=== PATIENT | male | born 1985 | race Caucasian/White ===

== ENCOUNTER 2018-11-11 15:25 | Emergency (ER) | payer OTHER ==
[2018-11-11 15:40] VITALS: BP 109/53; PULSE 86; RESP 18; TEMP 99
--- NOTE | 2018-11-11 16:00 | ED ---
Lower Extremity Injury HPI - General Chief Complaint: Extremity Injury, Lower Stated Complaint: Ankle injury Time Seen by Provider: 11/11/18 15:47 Source: patient Mode of arrival: ambulatory Limitations: no limitations - History of Present Illness Initial Comments: Patient is a 33-year-old male presenting to the emergency Department with complaints of left ankle pain times one day. Patient states he was walking on sidewalk last night and went to turn it and rolled his left ankle. Patient states he woke up today with increasing pain and swelling. Patient denies any previous injuries to left ankle. Patient is able to put some pressure on the ankle. Patient denies any numbness or tingling. Patient states denies any other complaints at this time. - Related Data Home Medications Medication Instructions Recorded Confirmed Ibuprofen [Motrin] 600 mg PO Q6HR PRN 11/11/15 11/12/15 Mupirocin 2% Oint [Bactroban 2% 1 applic TOPICAL TID 11/11/15 11/12/15 Oint] Sulfamethox-Tmp 800-160Mg [Bactrim 1 tab PO Q12HR 11/11/15 11/12/15 DS 800-160 mg] Previous Rx's Medication Instructions Recorded Metoclopramide HCl [Reglan] 10 mg PO Q6HR PRN #15 tablet 11/11/15 Sulfamethox-Tmp 800-160Mg [Bactrim 1 each PO Q12HR #14 tab 11/11/15 DS 800-160 mg] Clindamycin HCl [Cleocin] 300 mg PO Q6H #40 cap 11/12/15 predniSONE 50 mg PO DAILY #3 tab 11/12/15 Allergies Allergy/AdvReac Type Severity Reaction Status Date / Time sulfamethoxazole Allergy Rash/Hives Verified 11/11/18 15:37 [From Bactrim] trimethoprim [From Bactrim] Allergy Rash/Hives Verified 11/11/18 15:37 Review of Systems ROS Statement: Those systems with pertinent positive or pertinent negative responses have been documented in the HPI. ROS Other: All systems not noted in ROS Statement are negative. Past Medical History Past Medical History: No Reported History History of Any Multi-Drug Resistant Organisms: MRSA Date of last positivie culture/infection: 10/2015 - MRSA MDRO Source:: left thigh Past Surgical History: Appendectomy Past Psychological History: No Psychological Hx Reported Smoking Status: Former smoker Past Alcohol Use History: Occasional Past Drug Use History: Marijuana General Exam - General Exam Comments Initial Comments: GENERAL: Well-appearing, well-nourished and in no acute distress. HEAD: Atraumatic, normocephalic. EYES: Pupils equal round and reactive to light, extraocular movements intact, sclera anicteric, conjunctiva are normal. ENT: TMs normal, nares patent, oropharynx clear without exudates. Moist mucous membranes. NECK: Normal range of motion, supple without lymphadenopathy or JVD. LUNGS: Breath sounds clear to auscultation bilaterally and equal. No wheezes rales or rhonchi. HEART: Regular rate and rhythm without murmurs, rubs or gallops. ABDOMEN: Soft, nontender, normoactive bowel sounds. No guarding, no rebound. No masses appreciated. : Deferred EXTREMITIES: Patient has pain to palpation of the left lateral ankle along with some moderate edema. There is no bruising or erythema. Patient has slightly decreased range of motion of the left ankle. No pain in the left foot or toes. No pain in the lower leg. Neurovascular intact. NEUROLOGICAL: Cranial nerves II through XII grossly intact. Normal speech, normal gait. PSYCH: Normal mood, normal affect. SKIN: Warm, Dry, normal turgor, no rashes or lesions noted. Limitations: no limitations Course Vital Signs 11/11/18 15:37 Temperature 99.0 F Pulse Rate 86 Respiratory 18 Rate Blood Pressure 109/53 O2 Sat by Pulse 97 Oximetry Medical Decision Making - Medical Decision Making Patient is a 33-year-old male with complaints of left ankle pain times one day. Patient states he rolled his left ankle yesterday on the side of the sidewalk. On exam patient has mild to moderate swelling of the lateral left ankle and pain with palpation. X-ray of the left ankle reveals no acute fractures or dislocations. Patient was counseled on ankle sprains and be discharged home. Patient is in agreement with this plan. Return parameters were discussed with the patient and he verbalized understanding. Disposition Clinical Impression: Left ankle sprain Disposition: HOME SELF-CARE Condition: Stable Instructions (If sedation given, give patient instructions): Ankle Sprain (ED) Additional Instructions: Please return to the Emergency Department if symptoms worsen or any other concerns. Is patient prescribed a controlled substance at d/c from ED?: No Referrals: None,Stated [Primary Care Provider] - 1-2 days
--- NOTE | 2018-11-11 16:11 | XR ---
EXAMINATION TYPE: XR ankle complete LT DATE OF EXAM: 11/11/2018 COMPARISON: NONE HISTORY: Ankle pain TECHNIQUE: 3 views FINDINGS: Ankle mortise is anatomic. I see no fracture nor dislocation. Joint spaces are fairly margarito l. There is ankle joint effusion. IMPRESSION: Joint effusion. No fracture seen.
== END 2018-11-11 16:22 | disposition home or self-care (01) ==
LOC: EC 15:25
DX: S93.402A Sprain of unspecified ligament of left ankle, initial encounter (principal); Z86.14 Personal history of Methicillin resistant Staphylococcus aureus infection; Z87.891 Personal history of nicotine dependence; Z88.2 Allergy status to sulfonamides; X50.1XXA Overexertion from prolonged static or awkward postures, initial encounter; Y93.01 Activity, walking, marching and hiking; Y92.480 Sidewalk as the place of occurrence of the external cause
CPT/HCPCS: 99283

== ENCOUNTER 2020-02-14 07:13 | Emergency (ER) | payer OTHER ==
[2020-02-14 07:17] VITALS: BP 124/77; PULSE 77; RESP 18; TEMP 98.1
[2020-02-14] MEDS ORDERED: ACETAMINOPHEN TAB 500 MG TAB PO STA (07:24)
[2020-02-14] MEDS ORDERED: AMOXICILLIN 500 MG CAP PO STA (07:24)
[2020-02-14] MEDS ORDERED: AMOXICILLIN 500MG STARTER PACK 3 CAP BTL PO STA (07:24)
--- NOTE | 2020-02-14 07:32 | ED ---
General Adult HPI - General Chief complaint: Dental/Oral Stated complaint: Abcess Time Seen by Provider: 02/14/20 07:15 Source: patient, RN notes reviewed, old records reviewed Mode of arrival: ambulatory Limitations: no limitations - History of Present Illness Initial comments: This is a 34-year-old male presents emergency Department complaining of left lower molar pain. Patient states it started yesterday. Patient states he has similar problems in the past he didn't want to wait till it became an abscess. Patient has significant caries on multiple teeth. She has no insurance to see a dentist. Patient states she took Motrin before he came. - Related Data Home Medications Medication Instructions Recorded Confirmed Ibuprofen [Motrin] 600 mg PO Q6HR PRN 11/11/15 11/12/15 Mupirocin 2% Oint [Bactroban 2% 1 applic TOPICAL TID 11/11/15 11/12/15 Oint] Sulfamethox-Tmp 800-160Mg [Bactrim 1 tab PO Q12HR 11/11/15 11/12/15 DS 800-160 mg] Previous Rx's Medication Instructions Recorded Metoclopramide HCl [Reglan] 10 mg PO Q6HR PRN #15 tablet 11/11/15 Sulfamethox-Tmp 800-160Mg [Bactrim 1 each PO Q12HR #14 tab 11/11/15 DS 800-160 mg] clindamycin HCL [Cleocin] 300 mg PO Q6H #40 cap 11/12/15 predniSONE 50 mg PO DAILY #3 tab 11/12/15 Amoxicillin 500 mg PO Q8H #30 capsule 02/14/20 Allergies Allergy/AdvReac Type Severity Reaction Status Date / Time sulfamethoxazole Allergy Rash/Hives Verified 02/14/20 07:17 [From Bactrim] trimethoprim [From Bactrim] Allergy Rash/Hives Verified 02/14/20 07:17 Review of Systems ROS Statement: Those systems with pertinent positive or pertinent negative responses have been documented in the HPI. ROS Other: All systems not noted in ROS Statement are negative. Past Medical History Past Medical History: No Reported History History of Any Multi-Drug Resistant Organisms: MRSA Date of last positivie culture/infection: 10/2015 - MRSA MDRO Source:: left thigh Past Surgical History: Appendectomy Past Psychological History: No Psychological Hx Reported Smoking Status: Vaper Past Alcohol Use History: Occasional Past Drug Use History: Marijuana General Exam - General Exam Comments Initial Comments: GENERAL Patient is well-developed and well-nourished. Patient is in mild distress. EYES Patient's pupils are equal and round. Extraocular motion is intact MOUTH Patient has significant dental caries on the left lower premolar tooth 18. No abscess could be palpated or seen. SKIN Unremarkable NEURO The patient is alert and oriented 3 PYSCH Patient has normal interpersonal interactions. MUSCULOSKELETAL Unfortunately full range of motion Limitations: no limitations Course Vital Signs 02/14/20 07:15 Temperature 98.1 F Pulse Rate 77 Respiratory 18 Rate Blood Pressure 124/77 O2 Sat by Pulse 99 Oximetry Medical Decision Making - Medical Decision Making Patient had no fluctuant area to have an an I&D done. The patient will be sent home on antibiotics. Disposition Clinical Impression: Dental infection Disposition: HOME SELF-CARE Condition: Good Instructions (If sedation given, give patient instructions): Toothache (ED) Prescriptions: Amoxicillin 500 mg PO Q8H #30 capsule Is patient prescribed a controlled substance at d/c from ED?: No Referrals: None,Stated [Primary Care Provider] - 1-2 days Time of Disposition: 07:31
== END 2020-02-14 07:46 | disposition home or self-care (01) ==
LOC: EC 07:13
DX: K04.7 Periapical abscess without sinus (principal); K02.9 Dental caries, unspecified; F17.290 Nicotine dependence, other tobacco product, uncomplicated; Z88.2 Allergy status to sulfonamides; Z88.1 Allergy status to other antibiotic agents; Z86.14 Personal history of Methicillin resistant Staphylococcus aureus infection
CPT/HCPCS: 99283

== ENCOUNTER 2020-12-20 11:38 | Emergency (ER) | payer OTHER ==
[2020-12-20 11:47] VITALS: BP 113/78; PULSE 91; RESP 16; TEMP 98.2
[2020-12-20] MEDS ORDERED: ACETAMINOPHEN TAB 500 MG TAB PO STA (12:07)
--- NOTE | 2020-12-20 12:48 | XR ---
Left knee HISTORY: Trauma and pain 3 views the left knee Bone mineralization, joint spaces and alignment are maintained. There is small joint effusion, minima l suprapatellar increased density is noted. No fracture or dislocation. IMPRESSION: Small joint effusion.
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
--- NOTE | 2020-12-20 13:05 | XR ---
Lumbar spine HISTORY: Trauma and pain 4 views of lumbar spine Lumbar vertebral bodies show preserved height, alignment, and bone mineralization. Disc spaces are ma intained. IMPRESSION: No acute fracture or subluxation.
[2020-12-20] MEDS ORDERED: CYCLOBENZAPRINE 10MG STARTER 3 TAB BTL PO STA (13:54)
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
== END 2020-12-20 14:15 | disposition home or self-care (01) ==
LOC: EC 11:38
DX: S39.012A Strain of muscle, fascia and tendon of lower back, initial encounter (principal); S80.12XA Contusion of left lower leg, initial encounter; S80.11XA Contusion of right lower leg, initial encounter; S30.811A Abrasion of abdominal wall, initial encounter; M25.562 Pain in left knee; F17.290 Nicotine dependence, other tobacco product, uncomplicated; F12.90 Cannabis use, unspecified, uncomplicated; Z88.1 Allergy status to other antibiotic agents; Z88.2 Allergy status to sulfonamides; V43.52XA Car driver injured in collision with other type car in traffic accident, initial encounter; Y92.481 Parking lot as the place of occurrence of the external cause
CPT/HCPCS: 72100; 72170; 99284

== ENCOUNTER 2022-08-30 21:39 | Emergency (ER) | payer OTHER ==
[2022-08-30 21:46] VITALS: BP 130/74; PULSE 95; RESP 18; TEMP 98.1
--- NOTE | 2022-08-30 23:01 | ED ---
General Adult HPI - General Chief complaint: Psychiatric Symptoms Stated complaint: Mental health Time Seen by Provider: 08/30/22 21:57 Source: police Mode of arrival: ambulatory Limitations: no limitations - Related Data Home Medications Medication Instructions Recorded Confirmed Escitalopram [Lexapro] 10 mg PO DAILY 08/30/22 08/30/22 Naproxen [EC-Naproxen] 500 mg PO BID PRN 08/30/22 08/30/22 Allergies Allergy/AdvReac Type Severity Reaction Status Date / Time sulfamethoxazole Allergy Rash/Hives Verified 08/30/22 21:46 [From Bactrim] trimethoprim [From Bactrim] Allergy Rash/Hives Verified 08/30/22 21:46 Review of Systems ROS Statement: Those systems with pertinent positive or pertinent negative responses have been documented in the HPI. ROS Other: All systems not noted in ROS Statement are negative. Past Medical History Past Medical History: No Reported History History of Any Multi-Drug Resistant Organisms: MRSA Date of last positivie culture/infection: 10/2015 - MRSA MDRO Source:: left thigh Past Surgical History: Appendectomy Past Psychological History: No Psychological Hx Reported Smoking Status: Vaper Past Alcohol Use History: Occasional Past Drug Use History: Marijuana General Exam Limitations: no limitations Course Vital Signs 08/30/22 21:40 Temperature 98.1 F Pulse Rate 95 Respiratory 18 Rate Blood Pressure 130/74 O2 Sat by Pulse 94 L Oximetry Disposition Referrals: Izaiah Mix MD [Primary Care Provider] - 1-2 days
[2022-08-30 23:06] LABS: Amphetamine Screen,Urine Not Detected (NotDetected); Barbiturate Screen,Urine Not Detected (NotDetected); Benzodiazepines Screen,Urine Not Detected (NotDetected); Cocaine Screen,Urine Not Detected (NotDetected); Methadone Screen, Urine Not Detected (NotDetected); Opiate Screen,Urine Not Detected (NotDetected); Oxycodone Screen, Urine Not Detected (NotDetected); Phencyclidine Screen,Urine Not Detected (NotDetected); Tricyclic Antidepressant,Urine Not Detected (NotDetected); Urn Cannabinoid Scrn Detected (NotDetected)
[2022-08-30 23:21] LABS: Appearance,Urine Clear (Clear); Bilirubin,Urine Negative (Negative); Blood,Urine Negative (Negative); Color,Urine Yellow; Glucose,Urine (UA) Negative (Negative); Hyaline Casts,Urine 1 /lpf (0-2); Ketones,Urine Trace (Negative); Leukocyte Esterase,Urine Negative (Negative); Mucus,Urine Many /hpf; Nitrite,Urine Negative (Negative); PH, Urine 5.5 (5.0-8.0); Protein,Urine 1+ (Negative); RBC,Urine 2 /hpf (0-5); Specific Gravity,Urine 1.035 (1.001-1.035); Squamous Epithelial Cell,Urine <1 /hpf (0-4); WBC,Urine 2 /hpf (0-5)
--- NOTE | 2022-08-30 23:47 | ED ---
Psych HPI - General Chief Complaint: Psychiatric Symptoms Stated Complaint: Mental health Time Seen by Provider: 08/30/22 21:57 Source: police Mode of arrival: ambulatory Limitations: no limitations - History of Present Illness Initial Comments: this patient is a 37-year-old man who is here to have evaluation for suspected suicidal ideation. The patient's ex-girlfriend has reportedly filed a petition that he had been having suicidal ideation. The patient denies feeling suicidal he states that she misinterpreted the fact that he had a sheet that was kind of wound up and tucked under his head. patient denies suicidal ideation. He does admit to being stressed over the recent breakup and the fact that she had evicted him MD Complaint: other -: days(s) Associated Psychiatric Symptoms: depression, racing thoughts History of same: Yes Quality: getting worse Improves With: none Worsens With: none Context: significant life stressor Associated Symptoms: denies other symptoms - Related Data Home Medications Medication Instructions Recorded Confirmed Escitalopram [Lexapro] 10 mg PO DAILY 08/30/22 08/30/22 Naproxen [EC-Naproxen] 500 mg PO BID PRN 08/30/22 08/30/22 Allergies Allergy/AdvReac Type Severity Reaction Status Date / Time sulfamethoxazole Allergy Rash/Hives Verified 08/30/22 21:46 [From Bactrim] trimethoprim [From Bactrim] Allergy Rash/Hives Verified 08/30/22 21:46 Review of Systems ROS Statement: Those systems with pertinent positive or pertinent negative responses have been documented in the HPI. ROS Other: All systems not noted in ROS Statement are negative. Constitutional: Denies: fever Respiratory: Denies: cough, dyspnea Cardiovascular: Denies: chest pain, palpitations, syncope Gastrointestinal: Denies: abdominal pain, vomiting, diarrhea Genitourinary: Denies: dysuria, hematuria Musculoskeletal: Denies: back pain Skin: Denies: rash Neurological: Denies: headache, weakness Psychiatric: Reports: depression. Denies: auditory hallucinations, visual hallucinations, homicidal thoughts, suicidal thoughts Past Medical History Past Medical History: No Reported History History of Any Multi-Drug Resistant Organisms: MRSA Date of last positivie culture/infection: 10/2015 - MRSA MDRO Source:: left thigh Past Surgical History: Appendectomy Past Psychological History: No Psychological Hx Reported Smoking Status: Vaper Past Alcohol Use History: Occasional Past Drug Use History: Marijuana General Exam Limitations: no limitations General appearance: alert, in no apparent distress Head exam: Present: atraumatic, normocephalic Eye exam: Present: normal appearance. Absent: scleral icterus, conjunctival injection ENT exam: Present: normal oropharynx Neck exam: Present: normal inspection Respiratory exam: Present: normal lung sounds bilaterally. Absent: respiratory distress, wheezes, rales, rhonchi, stridor Cardiovascular Exam: Present: regular rate, normal rhythm, normal heart sounds. Absent: systolic murmur, diastolic murmur, rubs, gallop GI/Abdominal exam: Present: soft. Absent: distended, tenderness, guarding, rebound, rigid, mass Extremities exam: Present: normal inspection, normal capillary refill. Absent: pedal edema, calf tenderness Back exam: Present: normal inspection. Absent: CVA tenderness (R), CVA tenderness (L) Neurological exam: Present: alert Psychiatric exam: Present: depressed, anxious. Absent: agitated, manic, homicidal ideation, suicidal ideation Skin exam: Present: warm, dry, intact, normal color. Absent: rash Course Vital Signs 08/30/22 21:40 Temperature 98.1 F Pulse Rate 95 Respiratory 18 Rate Blood Pressure 130/74 O2 Sat by Pulse 94 L Oximetry Medical Decision Making - Medical Decision Making Was pt. sent in by a medical professional or institution ([facility], UNIT REACTOR OPERATOR, urgent care, hospital, or fpc...) When possible be specific @ -[No] Did you speak to anyone other than the patient for history (EMS, parent, family, police, friend...)? What history was obtained from this source @ -[No] Did you review nursing and triage notes (agree or disagree)? Why? @ -[I reviewed and agree with nursing and triage notes] Were old charts reviewed (outside hosp., previous admission, EMS record, old EKG, old radiological studies, urgent care reports/EKG's, fpc records)? Report findings @ -[No old charts were reviewed] Differential Diagnosis (chest pain, altered mental status, abdominal pain women, abdominal pain men, vaginal bleeding, weakness, fever, dyspnea, syncope, headache, dizziness, GI bleed, back pain, seizure, CVA, palpatations, mental health, musculoskeletal)? @ -[Differential Mental Health Depression, anxiety, bipolar, psychosis, schizophrenia, borderline personality, situational depression, adjustment disorder, behavioral disorder, brain tumor, malingering, substance abuse, encephalopathy, medication reaction, dementia, hypothyroidism, degenerative neurologic disorder, lupus.... This is not meant to be all-inclusive list EKG interpreted by me (3pts min.). @ -[ X-rays interpreted by me (1pt min.). @ -[None done] CT interpreted by me (1pt min.). @ -[None done] U/S interpreted by me (1pt. min.). @ -[None done] What testing was considered but not performed or refused? (CT, X-rays, U/S, labs)? Why? @ -[None] What meds were considered but not given or refused? Why? @ -[None] Did you discuss the management of the patient with other professionals (professionals i.e. , PA, UNIT REACTOR OPERATOR, lab, RT, psych nurse, social work nurse, mailer apprentice, teacher, rating officer, case consultant)? Give summary @ -[EPS personnel Was smoking cessation discussed for >3mins.? @ -[No] Was critical care preformed (if so, how long)? @ -[No] Were there social determinants of health that impacted care today? How? (Homelessness, low income, unemployed, alcoholism, drug addiction, transportation, low edu. Level, literacy, decrease access to med. care, long-term, rehab)? @ -[No] Was there de-escalation of care discussed even if they declined (Discuss DNR or withdrawal of care, Hospice)? DNR status @ -[No] What co-morbidities impacted this encounter? (DM, HTN, Smoking, COPD, CAD, Cancer, CVA, ARF, Chemo, Hep., AIDS, mental health diagnosis, sleep apnea, morbid obesity)? @ -[None] Was patient admitted / discharged? Hospital course, mention meds given and route, prescriptions, significant lab abnormalities, going to OR and other pertinent info. @ -[Discharged with safety plan Undiagnosed new problem with uncertain prognosis? @ -[No] Drug Therapy requiring intensive monitoring for toxicity (Heparin, Nitro, Insulin, Cardizem)? @ -[No] Were any procedures done? @ -[No] Diagnosis/symptom? @ -[Acute mood disorder, uncomplicated Acute, or Chronic, or Acute on Chronic? @ -[default] Uncomplicated (without systemic symptoms) or Complicated (systemic symptoms)? @ -[default] Side effects of treatment? @ -[No] Exacerbation, Progression, or Severe Exacerbation? @ -[No] Poses a threat to life or bodily function? How? (Chest pain, [place], [place], pneumonia, PE, COPD, DKA, ARF, appy, cholecystitis, CVA, Diverticulitis, Homicidal, Suicidal, threat to staff... and all critical care pts) @ -[No] - Lab Data Lab Results 08/30/22 08/30/22 Range/Units 22:37 22:37 Urine Color Yellow Urine Appearance Clear (Clear) Urine pH 5.5 (5.0-8.0) Ur Specific [place] 1.035 (1.001-1.035) Urine Protein 1+ H (Negative) Urine Glucose (UA) Negative (Negative) Urine Ketones Trace H (Negative) Urine Blood Negative (Negative) Urine Nitrite Negative (Negative) Urine Bilirubin Negative (Negative) Urine Urobilinogen 3.0 (<2.0) mg/dL Ur Leukocyte Esterase Negative (Negative) Urine RBC 2 (0-5) /hpf Urine WBC 2 (0-5) /hpf Ur Squamous Epith Cells <1 (0-4) /hpf Hyaline Casts 1 (0-2) /lpf Urine Mucus Many H (None) /hpf Urine Opiates Screen Not Detected (NotDetected) Ur Oxycodone Screen Not Detected (NotDetected) Urine Methadone Screen Not Detected (NotDetected) Ur Propoxyphene Screen Not Detected (NotDetected) Ur Barbiturates Screen Not Detected (NotDetected) U Tricyclic Antidepress Not Detected (NotDetected) Ur Phencyclidine Scrn Not Detected (NotDetected) Ur Amphetamines Screen Not Detected (NotDetected) U Methamphetamines Scrn Not Detected (NotDetected) U Benzodiazepines Scrn Not Detected (NotDetected) Urine Cocaine Screen Not Detected (NotDetected) U Marijuana (THC) Screen Detected H (NotDetected) Disposition Clinical Impression: Adjustment reaction of adult life Disposition: HOME SELF-CARE Condition: Good Instructions (If sedation given, give patient instructions): Mood Disorders (ED) Is patient prescribed a controlled substance at d/c from ED?: No Referrals: Izaiah Mix MD [Primary Care Provider] - 1-2 days
== END 2022-08-31 01:00 | disposition home or self-care (01) ==
LOC: EC 21:39
DX: F43.20 Adjustment disorder, unspecified (principal); F17.290 Nicotine dependence, other tobacco product, uncomplicated; F12.90 Cannabis use, unspecified, uncomplicated; Z88.1 Allergy status to other antibiotic agents; Z88.2 Allergy status to sulfonamides; Z90.49 Acquired absence of other specified parts of digestive tract
CPT/HCPCS: 80306; 81001; 82075; 99285

== ENCOUNTER 2023-03-03 09:07 | Emergency (ER) | payer OTHER ==
[2023-03-03 09:46] VITALS: RESP 18; TEMP 98.2
[2023-03-03] MEDS ORDERED: ACETAMINOPHEN TAB 325 MG TAB PO STA (10:24)
--- NOTE | 2023-03-03 10:39 | ED ---
Upper Extremity HPI - General Chief Complaint: Extremity Injury, Upper Stated Complaint: left shoulder/arm pain painful coughing Time Seen by Provider: 03/03/23 10:18 Source: patient, RN notes reviewed Mode of arrival: ambulatory Limitations: no limitations - History of Present Illness Initial Comments: Patient is a 37-year-old male presented ER with chief complaint of left shoulder pain. Patient states he started experiencing this pain about a week ago after moving a house. Patient also states he works at [employer] and the repetitive motion at the [employer] does not help his pain. Patient denies any known traumas or surgeries on this arm. Patient does state he has radiation down to his elbow and to the front of his chest. Patient states it hurts to breathe sometimes due to the pain. Patient has no significant past medical history. - Related Data Home Medications Medication Instructions Recorded Confirmed Escitalopram [Lexapro] 10 mg PO DAILY 08/30/22 08/30/22 Naproxen [EC-Naproxen] 500 mg PO BID PRN 08/30/22 08/30/22 Previous Rx's Medication Instructions Recorded Cyclobenzaprine [Flexeril] 5 mg PO TID PRN #15 tablet 03/03/23 Allergies Allergy/AdvReac Type Severity Reaction Status Date / Time sulfamethoxazole Allergy Rash/Hives Verified 03/03/23 09:22 [From Bactrim] trimethoprim [From Bactrim] Allergy Rash/Hives Verified 03/03/23 09:22 Review of Systems ROS Statement: Those systems with pertinent positive or pertinent negative responses have been documented in the HPI. ROS Other: All systems not noted in ROS Statement are negative. Past Medical History Past Medical History: No Reported History History of Any Multi-Drug Resistant Organisms: MRSA Date of last positivie culture/infection: 10/2015 - MRSA MDRO Source:: left thigh Past Surgical History: Appendectomy Past Psychological History: No Psychological Hx Reported Smoking Status: Vaper Past Alcohol Use History: Occasional Past Drug Use History: Marijuana General Exam Limitations: no limitations General appearance: alert, in no apparent distress Respiratory exam: Present: normal lung sounds bilaterally, chest wall tenderness (Tenderness to palpation of left chest wall), other. Absent: respiratory distress, wheezes, rales, rhonchi, stridor Cardiovascular Exam: Present: regular rate, normal rhythm, normal heart sounds. Absent: systolic murmur, diastolic murmur, rubs, gallop, clicks Extremities exam: Present: other (2+ left radial pulse. Full active range of motion. Mild crepitus noted of left scapula with motion.) Back exam: Present: normal inspection Neurological exam: Present: alert, oriented X3, CN II-XII intact Skin exam: Present: warm, dry, intact, normal color. Absent: rash Course Vital Signs 03/03/23 09:22 Temperature 98.2 F Pulse Rate 77 Respiratory 18 Rate Blood Pressure 120/78 O2 Sat by Pulse 100 Oximetry Medical Decision Making - Medical Decision Making Was pt. sent in by a medical professional or institution (, PA, CERTIFIED MEDICAL ASST, urgent care, hospital, or snf...) When possible be specific @ -No Did you speak to anyone other than the patient for history (EMS, parent, family, police, friend...)? What history was obtained from this source @ -No Did you review nursing and triage notes (agree or disagree)? Why? @ -I reviewed and agree with nursing and triage notes Were old charts reviewed (outside hosp., previous admission, EMS record, old EKG, old radiological studies, urgent care reports/EKG's, snf records)? Report findings @ -No old charts were reviewed Differential Diagnosis (chest pain, altered mental status, abdominal pain women, abdominal pain men, vaginal bleeding, weakness, fever, dyspnea, syncope, headache, dizziness, GI bleed, back pain, seizure, CVA, palpatations, mental health, musculoskeletal)? @ -Differential Musculoskeletal: Muscular strain, contusion, ligament sprain, fracture, arthritis, septic arthritis, bursitis, cellulitis, muscle spasm, nerve compression, DVT, arterial occlusion, herpes zoster, electrolyte abnormality, tumor.... This is not meant to be in all inclusive list EKG interpreted by me (3pts min.). @ -None X-rays interpreted by me (1pt min.). @ -X-ray of left shoulder shows no acute fractures/dislocations. CT interpreted by me (1pt min.). @ -None done U/S interpreted by me (1pt. min.). @ -None done What testing was considered but not performed or refused? (CT, X-rays, U/S, labs)? Why? @ -None What meds were considered but not given or refused? Why? @ -None Did you discuss the management of the patient with other professionals (professionals i.e. , PA, CERTIFIED MEDICAL ASST, lab, RT, psych nurse, rn social services, ostomy rn, teacher, chief media officer, renal case manager)? Give summary @ -No Was smoking cessation discussed for >3mins.? @ -No Was critical care preformed (if so, how long)? @ -No Were there social determinants of health that impacted care today? How? (Homelessness, low income, unemployed, alcoholism, drug addiction, transportation, low edu. Level, literacy, decrease access to med. care, long term, rehab)? @ -No Was there de-escalation of care discussed even if they declined (Discuss DNR or withdrawal of care, Hospice)? DNR status @ -No What co-morbidities impacted this encounter? (DM, HTN, Smoking, COPD, CAD, Cancer, CVA, ARF, Chemo, Hep., AIDS, mental health diagnosis, sleep apnea, morbid obesity)? @ -None Was patient admitted / discharged? Hospital course, mention meds given and route, prescriptions, significant lab abnormalities, going to OR and other pertinent info. @ -Discharge. X-rays obtained of the left shoulder in the ER were negative for any acute fractures, dislocations or osseous pathology. Patient received by mouth Tylenol for pain control in the ER. Upon reevaluation the patient states he is feeling slightly better. Patient will be discharged home with a low dose muscle relaxer. Patient advised to take [id number] Tylenol Motrin for pain. I also advised the patient to continue stretching and to return if any of his symptoms change or worsen. Patient will be discharged home in stable condition. Patient expressed understanding and agreement with care plan. Undiagnosed new problem with uncertain prognosis? @ -No Drug Therapy requiring intensive monitoring for toxicity (Heparin, Nitro, Insulin, Cardizem)? @ -No Were any procedures done? @ -No Diagnosis/symptom? @ -Muscle spasm/strain Acute, or Chronic, or Acute on Chronic? @ -Acute Uncomplicated (without systemic symptoms) or Complicated (systemic symptoms)? @ -Uncomplicated Side effects of treatment? @ -No Exacerbation, Progression, or Severe Exacerbation? @ -No Poses a threat to life or bodily function? How? (Chest pain, [place], [place], pneumonia, PE, COPD, DKA, ARF, appy, cholecystitis, CVA, Diverticulitis, Homicidal, Suicidal, threat to staff... and all critical care pts) @ -No - Radiology Data Radiology results: report reviewed, image reviewed Disposition Clinical Impression: Strain of shoulder, Muscle spasm Disposition: HOME SELF-CARE Condition: Stable Additional Instructions: Please return to the Emergency Department if symptoms worsen or any other concerns. Prescriptions: Cyclobenzaprine [Flexeril] 5 mg PO TID PRN #15 tablet PRN Reason: Muscle Spasm Is patient prescribed a controlled substance at d/c from ED?: No Referrals: Izaiah Mix MD [Primary Care Provider] - 1-2 days Time of Disposition: 11:16
--- NOTE | 2023-03-03 11:00 | XR ---
EXAMINATION TYPE: XR shoulder complete LT DATE OF EXAM: 03/03/2023 10:39 AM CLINICAL INDICATION:Male, 37 years old with history of pain COMPARISON: None TECHNIQUE: XR shoulder complete LT; shoulder was examined in AP, internally rotated and scapular Y p rojections. FINDINGS: No evidence of acute osseous pathology, joint dislocation, or soft tissue swelling. The remaining por tions of the visualized chest are unremarkable. IMPRESSION: No acute osseous pathology.
[2023-03-03 11:34] VITALS: BP 125/64; PULSE 67
== END 2023-03-03 11:28 | disposition home or self-care (01) ==
LOC: EC 09:07
DX: S46.912A Strain of unspecified muscle, fascia and tendon at shoulder and upper arm level, left arm, initial encounter (principal); F17.290 Nicotine dependence, other tobacco product, uncomplicated; F12.90 Cannabis use, unspecified, uncomplicated; Z88.2 Allergy status to sulfonamides; Z88.1 Allergy status to other antibiotic agents; Z79.899 Other long term (current) drug therapy; X58.XXXA Exposure to other specified factors, initial encounter
CPT/HCPCS: 99283

== ENCOUNTER 2024-09-03 16:25 | Emergency (ER) | payer OTHER ==
[2024-09-03 16:37] VITALS: RESP 18
--- NOTE | 2024-09-03 17:59 | ED ---
Wound/Laceration HPI - General Chief Complaint: Wound/Laceration Stated Complaint: L leg laceration Source: patient, RN notes reviewed Mode of arrival: ambulatory Limitations: no limitations - History of Present Illness Initial Comments: Patient is a 39-year-old male with no known past medical history presenting for laceration to anteromedial left thigh wound. He states that he was trying to fix the nozzle of a garden hose with a knife when the knife slipped and hit his thigh. There was some bleeding but it was easily controlled with pressure and bandaging. Patient was able to ambulate with some discomfort. He is unsure when his last tetanus shot was, he believes it was more than 10 years ago. He denies numbness/tingling, lightheadedness, dizziness, dyspnea, nausea/vomiting. He denies blood thinners. - Related Data Home Medications Medication Instructions Recorded Confirmed Escitalopram [Lexapro] 10 mg PO DAILY 08/30/22 08/30/22 Naproxen [EC-Naproxen] 500 mg PO BID PRN 08/30/22 08/30/22 Previous Rx's Medication Instructions Recorded Cyclobenzaprine [Flexeril] 5 mg PO TID PRN #15 tablet 03/03/23 Allergies Allergy/AdvReac Type Severity Reaction Status Date / Time sulfamethoxazole Allergy Rash/Hives Verified 09/03/24 16:37 [From Bactrim] trimethoprim [From Bactrim] Allergy Rash/Hives Verified 09/03/24 16:37 Review of Systems ROS Statement: Those systems with pertinent positive or pertinent negative responses have been documented in the HPI. ROS Other: All systems not noted in ROS Statement are negative. Constitutional: Denies: fever, chills Respiratory: Denies: cough, dyspnea Cardiovascular: Denies: chest pain Gastrointestinal: Denies: abdominal pain, nausea, vomiting, melena, hematochezia Genitourinary: Denies: hematuria Skin: Denies: rash, lesions Neurological: Denies: headache, weakness, numbness Past Medical History Past Medical History: No Reported History History of Any Multi-Drug Resistant Organisms: MRSA Date of last positivie culture/infection: 10/2015 - MRSA MDRO Source:: left thigh Past Surgical History: Appendectomy Past Psychological History: No Psychological Hx Reported Smoking Status: Vaper Past Alcohol Use History: Occasional Past Drug Use History: Marijuana General Exam Limitations: no limitations General appearance: alert, in no apparent distress Head exam: Present: atraumatic Eye exam: Present: normal appearance ENT exam: Present: mucous membranes moist, normal external ear exam Respiratory exam: Present: normal lung sounds bilaterally. Absent: respiratory distress, wheezes, rales, rhonchi Cardiovascular Exam: Present: regular rate, normal rhythm, normal heart sounds. Absent: systolic murmur, diastolic murmur GI/Abdominal exam: Present: soft, normal bowel sounds. Absent: distended, tenderness Extremities exam: Present: normal inspection Left Upper Leg exam: Present: full ROM, tenderness, laceration (1 cm antermedial thigh). Absent: ecchymosis, deformity Neurovascular tendon exam: Present: no vascular compromise Neurological exam: Present: alert, oriented X3 Psychiatric exam: Present: normal affect, normal mood Skin exam: Present: warm, dry, normal color. Absent: rash Course Vital Signs 09/03/24 09/03/24 09/03/24 16:31 17:20 18:19 Temperature 98.3 F 97.9 F Pulse Rate 121 H 83 67 Respiratory 18 18 18 Rate Blood Pressure 118/75 119/72 112/69 O2 Sat by Pulse 98 97 97 Oximetry Procedures - Laceration Laceration #1 Consent Obtained: verbal consent Indication: laceration Site: lower extremity (left anteromedial thigh) Size (cm): 1 Depth: simple, single layer Anesthetic Used: lidocaine 1% Anesthesia Technique: local infiltration Amount (mls): 3 Type of Sutures: nylon Size of Sutures: 4-0 Number of Sutures: 2 Technique: simple, interrupted Patient Tolerated Procedure: no complications Medical Decision Making - Medical Decision Making Was pt. sent in by a medical professional or institution (, PA, PILL MAKER, urgent care, hospital, or intermediate...) When possible be specific @ -No Did you speak to anyone other than the patient for history (EMS, parent, family, police, friend...)? What history was obtained from this source @ -No Did you review nursing and triage notes (agree or disagree)? Why? @ -I reviewed and agree with nursing and triage notes Were old charts reviewed (outside hosp., previous admission, EMS record, old EKG, old radiological studies, urgent care reports/EKG's, intermediate records)? Report findings @ -No old charts were reviewed Differential Diagnosis? @ -Laceration, abrasion, ulceration, fracture, this is not meant to be an all- inclusive list EKG interpreted by me (3pts min.). @ -None done X-rays interpreted by me (1pt min.). @ -None done CT interpreted by me (1pt min.). @ -None done U/S interpreted by me (1pt. min.). @ -None done What testing was considered but not performed or refused? (CT, X-rays, U/S, labs)? Why? @ -None What meds were considered but not given or refused? Why? @ -None Did you discuss the management of the patient with other professionals (professionals i.e. , PA, PILL MAKER, lab, RT, psych nurse, social media executive, design engineer products, teacher, senior credit officer, therapeutic case manager)? Give summary @ -No Was smoking cessation discussed for >3mins.? @ -No Was critical care preformed (if so, how long)? @ -No Were there social determinants of health that impacted care today? How? (Homelessness, low income, unemployed, alcoholism, drug addiction, transportation, low edu. Level, literacy, decrease access to med. care, residential, rehab)? @ -No Was there de-escalation of care discussed even if they declined (Discuss DNR or withdrawal of care, Hospice)? DNR status @ -No What co-morbidities impacted this encounter? (DM, HTN, Smoking, COPD, CAD, Cancer, CVA, ARF, Chemo, Hep., AIDS, mental health diagnosis, sleep apnea, morbid obesity)? @ -None Was patient admitted / discharged? Hospital course, mention meds given and route, prescriptions, significant lab abnormalities, going to OR and other pertinent info. @ -Patient is a 39-year-old male presenting for a medial thigh laceration due to an accidental knife injury. He is unsure when his last tetanus was so he was given Tdap vaccine today. Laceration measures 1 cm in length. Area was irrigated with saline and Betadine. Verbal consent was obtained and lidocaine 1% injected subcutaneously and the wound was closed with 2 simple interrupted sutures of 4-0 nylon. Patient should keep the area clean and dry. Patient should not submerge the area. He can wash with warm soapy water but should not scrub the area. Patient should have the sutures removed in 7-10 days. Return precautions discussed. Recommend patient follow-up with PCP in 1 to 2 days. Undiagnosed new problem with uncertain prognosis? @ -No Drug Therapy requiring intensive monitoring for toxicity (Heparin, Nitro, Insulin, Cardizem)? @ -No Were any procedures done? @ -2 interrupted sutures Diagnosis/symptom? @ -Laceration Acute, or Chronic, or Acute on Chronic? @ -Acute Uncomplicated (without systemic symptoms) or Complicated (systemic symptoms)? @ -Uncomplicated Side effects of treatment? @ -No Exacerbation, Progression, or Severe Exacerbation? @ -No Poses a threat to life or bodily function? How? (Chest pain, [place], [place], pneumonia, PE, COPD, DKA, ARF, appy, cholecystitis, CVA, Diverticulitis, Homicidal, Suicidal, threat to staff... and all critical care pts) @ -No Disposition Clinical Impression: Laceration Disposition: HOME SELF-CARE Condition: Stable Instructions (If sedation given, give patient instructions): Care For Your Stitches (ED), Laceration (ED) Additional Instructions: Every disease is a spectrum and a small chance still exists that a serious condition could develop, for this reason, please monitor yourself closely for new, changing or worsening symptoms, symptoms that persist beyond 48 hours, fever, inability to tolerate/keep down fluids or your medications, inability to follow up with outpatient providers as instructed and should you experience these symptoms or should you have any further concerns for your wellbeing please return to the ED or call 911 immediately. You will need to have your stitches removed in 10 days. You may see your primary care provider, an urgent care, or return to the emergency department to have your stitches removed. Your pain can be treated with ibuprofen and acetaminophen. You can take up to 400-600 mg of ibuprofen (Advil, Motrin) 3 times daily (every 8 hours) but can also use lower doses if this relieves your pain. Some people prefer naproxen (Aleve, Naprosyn) which can be taken in doses of 500 mg up to twice a day. Do not take both of these medicines together, and do not combine either with ketorolac (Toradol), meloxicam (Mobic), or indomethacin (Tivorbex). Some people can develop stomach discomfort with higher doses of either ibuprofen or naproxen, if this develops decrease your dose or stop taking it. If you need to take this dose daily for more than a week, please schedule an appointment for re-evaluation with your PCP. Please take these medications with food. You can take up to 1000 mg of acetaminophen (Tylenol) every 6 hours. Be careful as this is included in some medicines like Nyquil, [place], Percocet, Vicodin, STANBACK, Goody's Powders, and Excedrin. You can also use lidocaine patches for topical pain. You can purchase 4% patches over the counter at most drug stores. These can be helpful for pain from your muscles or bones. PLEASE call your primary care physician as soon as possible to arrange / discuss plan for followup appointment. Appointment in the next 1-3 days is strongly encouraged if possible. PLEASE let us know here before you leave if there is anything further we can do to be of any assistance. Take care and feel Better! Is patient prescribed a controlled substance at d/c from ED?: No Referrals: None,Stated [Primary Care Provider] - 1-2 days Leonarda Carranza MD [Emergency Provider] - 1-2 days Time of Disposition: 18:42
[2024-09-03 18:21] VITALS: BP 112/69; PULSE 67; TEMP 97.9
[2024-09-03] MEDS: DIPH,PERTUS(ACELL)TETVAC-LF 0.5 ML VIAL IM ONE (18:21)
[2024-09-03] MEDS: LIDOCAINE 1% INJ 10MG/ML (20 ML MDV) SQ ONE (18:21)
== END 2024-09-03 18:51 | disposition home or self-care (01) ==
LOC: EC 16:25
DX: S71.112A Laceration without foreign body, left thigh, initial encounter (principal); F17.290 Nicotine dependence, other tobacco product, uncomplicated; Z88.2 Allergy status to sulfonamides; Z88.1 Allergy status to other antibiotic agents; Z23 Encounter for immunization; W26.0XXA Contact with knife, initial encounter
CPT/HCPCS: 90715; 12001; 99282; 90471; J2003